=== PATIENT | male | born 2005 | race Caucasian/White ===

== ENCOUNTER 2023-11-07 23:25 | Emergency (ER) | payer BC, SELFPAY ==
[2023-11-07] MEDS ORDERED: MAGNES/ALUMIN/SIMET 30ML UCUP ONE (23:52)
[2023-11-07] MEDS ORDERED: LIDOCAINE VISCOUS 2% 10ML ORAL SOLN ONE (23:53)
--- NOTE | 2023-11-08 00:50 | EDPHYS ---
Physician Documentation [facility] Name: Blue Guajardo Age: 18 yrs Sex: Male : 2005 Arrival Date: 11/07/2023 Time: 23:25 Bed 14 Private MD: ED Physician Anupam Zaragoza HPI: 11/06 23:40 This 18 yrs old Male presents to ER via Unassigned with complaints of Sore Throat. kb 23:40 Pt is a 18 year old male who presents for sore throat that started 2-3 days ago and has kb gotten worse. States it feels like the pain has gone down his esophagus. Reports history of GERD, but doesn't take anything for it. Reports he has had a lot of acid reflux as well. Denies fever. . Historical: - Allergies: 11/07 00:00 No Known Allergies; ha1 - Immunization history:: Adult Immunizations up to date. - Infectious Disease History:: Denies. - Social history:: Smoking status: Reported history of juuling and/or vaping. ROS: 11/06 23:40 Constitutional: As per HPI kb Exam: 23:40 Constitutional: This is a well developed, well nourished patient who is awake, alert, kb and in no acute distress. Head/Face: Normocephalic, atraumatic. Cardiovascular: Regular rate Respiratory: Respirations even and unlabored. No increased work of breathing. Talking in full sentences Abdomen/GI: Soft, non-tender. No distention Skin: Warm, dry with normal turgor. Normal color. MS/ Extremity: Pulses equal, no cyanosis. Neurovascular intact. Full, normal range of motion. Neuro: Awake and alert, GCS 15, oriented to person, place, time, and situation. Moves all extremities. Normal gait. 23:40 ENT: Posterior pharynx: Airway: normal, Tonsils: are normal in appearance, erythema, that is mild, that is moderate, Vital Signs: 23:42 BP 126 / 84; Pulse 90; Resp 17 S; Temp 97.8(T); Pulse Ox 99% on R/A; Weight 80.74 kg; ha1 Height 5 ft. 10 in. ; 11/07 00:31 BP 126 / 93; Pulse 88; Resp 17 S; Pulse Ox 100% on R/A; ha1 11/06 23:42 Body Mass Index 25.54 (80.74 kg, 177.8 cm) ha1 MDM: 11/06 23:39 Patient medically screened. 23:43 Data reviewed: vital signs, nurses notes. 23:43 Differential diagnosis: strep, pharyngitis, GERD. 11/07 00:49 I considered the following discharge prescriptions or medication management in the emergency department I discussed and recommended Over The Counter medications, Antibiotics: At this time antibiotics are not recommended. Counseling: I had a detailed discussion with the patient and/or guardian regarding the historical points, exam findings, and any diagnostic results supporting the discharge/admit diagnosis, lab results, the need for outpatient follow up, a family practitioner, to return to the emergency department if symptoms worsen or persist or if there are any questions or concerns that arise at home. 11/06 23:43 Order name: Strep 11/07 00:16 Order name: Throat Culture EDMS Administered Medications: 00:11 Drug: GI Cocktail without - (Maalox PO 30 ml, Lidocaine Mucous Membrane 2 % 15 ha1 ml) PO once Route: PO; 01:10 Follow up: Response: No adverse reaction; Marked relief of symptoms ha1 01:00 Drug: Famotidine PO 20 mg PO once Route: PO; ha1 01:10 Follow up: Response: No adverse reaction; Marked relief of symptoms ha1 Disposition: 04:48 Co-signature as Attending Physician, Anupam Zaragoza MD I agree with the assessment sp4 and plan of care. I reviewed the patient's care provided by the Advanced Practice Provider and agree with the diagnosis and treatment plan. Disposition Summary: 11/08/23 00:49 Discharge Ordered Notes: Location: Home Condition: Stable Diagnosis - Pain in throat kb Followup: kb - With: Emergency Department - When: As needed - Reason: Worsening of condition Followup: kb - With: Private Physician - When: 2 - 3 days - Reason: Recheck today's complaints, Continuance of care, Re-evaluation by your physician Discharge Instructions: - Discharge Summary Sheet kb - Sore Throat, [id number] kb Forms: - Medication Reconciliation Form kb - Antibiotic Education kb - Prescription Opioid Use kb - Patient Portal Instructions kb - Leadership Thank You Letter kb Signatures: Dispatcher [employer] EDMS Kitty Booth FNP-C BACK SEAM STITCHER-CkGregoria Vazquez, RN RN ha1 Anupam Zaragoza MD MD sp4
--- NOTE | 2023-11-08 00:50 | ER ---
Nurse's Notes [facility] Name: Blue Guajardo Age: 18 yrs Sex: Male : 2005 Arrival Date: 11/07/2023 Time: 23:25 Bed 14 Private MD: Diagnosis: Pain in throat Presentation: 11/06 23:42 Chief complaint: Patient states: I have a sore throat for the past three days and it ha1 has gradually got worse. 23:42 Coronavirus screen: Vaccine status: Patient reports being unvaccinated. Ebola Screen: ha1 No symptoms or risks identified at this time. Initial Sepsis Screen: Does the patient meet any 2 criteria? No. Patient's initial sepsis screen is negative. Does the patient have a suspected source of infection? No. Patient's initial sepsis screen is negative. Risk Assessment: Do you want to hurt yourself or someone else? Patient reports no desire to harm self or others. Onset of symptoms was November 05, 2023. 23:42 Method Of Arrival: Ambulatory ha1 23:42 Acuity: ZIYAD 5 ha1 Triage Assessment: 23:42 General: Appears comfortable, Behavior is calm, cooperative. Pain: Complains of pain in ha1 sore throat Pain does not radiate. Pain currently is 4 out of 10 on a pain scale. EENT: Oral mucosa is moist. Throat is reddened. Neuro: Level of Consciousness is awake, alert, obeys commands, Oriented to person, place, time, situation. Cardiovascular: Capillary refill < 3 seconds Patient's skin is warm and dry. Respiratory: Airway is patent Respiratory effort is even, unlabored, Respiratory pattern is regular, symmetrical. GI: No signs and/or symptoms were reported involving the gastrointestinal system. Derm: Skin is pink, warm \T\ dry. Musculoskeletal: Circulation, motion, and sensation intact. Range of motion: intact in all extremities. Historical: - Allergies: 11/07 00:00 No Known Allergies; ha1 - Immunization history:: Adult Immunizations up to date. - Infectious Disease History:: Denies. - Social history:: Smoking status: Reported history of juuling and/or vaping. Screenin:02 [facility] ED Fall Risk Assessment (Adult) History of falling in the last 3 months, ha1 including since admission No falls in past 3 months (0 pts) Confusion or Disorientation No (0 pts) Intoxicated or Sedated No (0 pts) Impaired Gait No (0 pts) Mobility Assist Device Used No (0 pt) Altered Elimination No (0 pt) Score/Fall Risk Level 0 - 2 = Low Risk Oriented to surroundings, Maintained a safe environment, Educated pt \T\ family on fall prevention, incl call for assistance when getting out of bed, Hourly rounding (assess needs \T\ fall precautionary measures) done. Abuse screen: Denies threats or abuse. Denies injuries from another. Nutritional screening: No deficits noted. Tuberculosis screening: No symptoms or risk factors identified. Assessment: 11/06 23:42 Reassessment: see triage assessment. ha1 23:42 Respiratory: Airway is patent Respiratory effort is even, unlabored, Respiratory ha1 pattern is regular, symmetrical, Breath sounds are clear bilaterally. 11/07 00:31 Reassessment: Patient and/or family updated on plan of care and expected duration. Pain ha1 level reassessed. Patient is alert, oriented x 3, equal unlabored respirations, skin warm/dry/pink. 01:09 Reassessment: Patient and/or family updated on plan of care and expected duration. Pain ha1 level reassessed. Patient is alert, oriented x 3, equal unlabored respirations, skin warm/dry/pink. Vital Signs: 11/06 23:42 BP 126 / 84; Pulse 90; Resp 17 S; Temp 97.8(T); Pulse Ox 99% on R/A; Weight 80.74 kg; ha1 Height 5 ft. 10 in. ; 11/07 00:31 BP 126 / 93; Pulse 88; Resp 17 S; Pulse Ox 100% on R/A; ha1 11/06 23:42 Body Mass Index 25.54 (80.74 kg, 177.8 cm) 1 ED Course: 11/06 23:38 Patient arrived in ED. [id number] 23:39 Kitty Booth FNP-C is [facility]. kb 23:39 Anupam Zaragoza MD is Attending Physician. kb 23:42 Patient has correct armband on for positive identification. Bed in low position. Call ha1 light in reach. Side rails up X 1. Adult w/ patient. 23:42 Arm band placed on right wrist. ha1 23:48 Singer, Gregoria, RN is Primary Nurse. ha1 11/07 00:00 Triage completed. ha1 01:09 No provider procedures requiring assistance completed. Patient did not have IV access ha1 during this emergency room visit. 01:10 Provided Education on: FOLLOW UPS. ha1 Administered Medications: 00:11 Drug: GI Cocktail without - (Maalox PO 30 ml, Lidocaine Mucous Membrane 2 % 15 ha1 ml) PO once Route: PO; 01:10 Follow up: Response: No adverse reaction; Marked relief of symptoms ha1 01:00 Drug: Famotidine PO 20 mg PO once Route: PO; ha1 01:10 Follow up: Response: No adverse reaction; Marked relief of symptoms ha1 Medication: 00:03 VIS not applicable for this client. ha1 Outcome: 00:49 Discharge ordered by . candelaria 01:09 Discharged to home ambulatory, with family, ha05 10: Condition: stable 01:09 Discharge instructions given to patient, family, Instructed on discharge instructions, follow up and referral plans. Demonstrated understanding of instructions, follow-up care, 01:10 Patient left the ED. ha1 Signatures: Kitty Booth, CONSERVATION POLICY ANALYST-C CONSERVATION POLICY ANALYST-Daiana Ellis [id number] Gregoria Singer, RN RN ha1
[2023-11-08] MEDS ORDERED: FAMOTIDINE 20 MG/2 ML VIAL IV ONE (00:59)
[2023-11-08] MEDS ORDERED: FAMOTIDINE 20 MG TAB ONE (01:00)
[2023-11-08 02:05] VITALS: BP 126/93; TEMP 97.8; O2SAT 100
== END 2023-11-08 01:10 | disposition home or self-care (01) ==
LOC: ER 23:25
DX: R07.0 Pain in throat (principal)
CPT/HCPCS: 87070; 87081; 99283